=== PATIENT | male | born 1980 | race Caucasian/White ===

== ENCOUNTER 2020-04-30 20:07 | Emergency (ER) | payer OTHER ==
[~2020-04-30] VITALS: Ht 180.3 cm; Wt 79.4 kg
[2020-04-30 20:12] VITALS: BP 146/93
[2020-04-30] MEDS ORDERED: XANAX 0.5 MG0.5 M1 PO (20:18)
--- NOTE | 2020-05-03 14:49 | EKG ---
[place] [address] ELECTROCARDIOGRAM REPORT Name: CHIOMA ROMANRico Room: [facility] ([place], [place])#: [id number] Admission: 04/30/20 Attend Phys: Discharge: 04/30/20 Date of : 84 Date of Service: 04/30/202011 Report #: [id number] THIS REPORT FOR: //name// [facility] ED Test Date: 2020-04-30 Test Time: 20:12:48 Pat Name: JOHN ROMAN Department: Room: Gender: [employer]: [place] : 1980 Requested By: Ruthann Crawford Order Number: [id number] Feliciano AGUILAR: Francesco Mc Measurements Intervals [place] Rate: 104 P: 64 OR: 186 QRS: 78 QRSD: 110 T: 45 QT: 350 QTc: 461 Interpretive Statements Sinus tachycardia No previous ECG available for comparison Electronically Signed On 05-03-2020 14:49:13 CDT by Francesco Mc [email or web address] <ELECTRONICALLY SIGNED> By: Francesco Mc MD, [facility] 05/03/20 1449 11 11 Francesco Mc MD, FACC /EPI
== END 2020-04-30 21:11 | disposition home or self-care (01) ==
LOC: M.ERS 20:07
DX: R00.2 Palpitations (principal)